=== PATIENT | male | born 1955 | race Caucasian/White ===

== ENCOUNTER 2016-07-17 09:26 | Day surgery (SDC) | payer BC ==
[~2016-07-17 09:26] MED LIST: FENTANYL 250 MCG/5 ML AMP IV PRN; LACTATED RINGERS 1,000 ML IV SCH; LIDOCAINE Viscous 2% 15 ML UDCUP PO PRN; MIDAZOLAM HCL 5 MG/5 ML VIAL IV PRN
[2016-07-17] MEDS ORDERED: LACTATED RINGERS 1,000 ML ONE (09:42)
[2016-07-17] MEDS ORDERED: IV START KIT ONE (09:42)
[2016-07-17] MEDS ORDERED: MIDAZOLAM HCL 5 MG/5 ML VIAL ONE (10:46)
[2016-07-17] MEDS ORDERED: FENTANYL 5 ML ONE (10:46)
[2016-07-17] MEDS ORDERED: LIDOCAINE Viscous 2% 15 ML UDCUP ONE (10:46)
[2016-07-17 15:36] LABS: HELICOBACTER PYLORII DETECTION NEGATIVE (NEGATIVE)
--- NOTE | 2016-07-20 08:08 | SURGPATH ---
[facility] [address] [place] [id number] Patient Name: TATY QUINONES MR#: [id number] : 1955 Gender: M Specimen #: [id number] Collected: 07/17/2016 Received: 07/18/2016 Reported: 07/20/2016 Submitting Phys: KRISTIAN ABEL Copy To Phys: [facility] PARAMJIT CAMARA Clinical History / Pre-Operative Diagnosis: Epigastric pain with nausea; melena; rule out giardia, celiac sprue and gastritis Specimen Source / Surgical Procedure Performed: #1-duodenal biopsy; #2-antral biopsy Interpretation: 1. DUODENUM, BIOPSY: - NO PATHOLOGIC DIAGNOSIS 2. GASTRIC ANTRUM, BIOPSY: - CHRONIC GASTRITIS Electronically Signed Out Jose Benites M.D. Gross Description: #1 The specimen is received in a formalin filled container labeled with the patient's name and "duodenal biopsy". Two rao biopsies are 0.3 and 0.4 cm. Totally embedded in cassette #1. #2 The specimen is received in a formalin filled container labeled with the patient's name and "antral biopsy". Two rao biopsies are 0.2 and 0.4 cm. Totally embedded in cassette #2. Dixon Morgan Microscopic Description: 1. Levels reveal small intestinal mucosa with a normal villous architecture. Ulceration, acute inflammation, granulomas, intraepithelial lymphocytosis, Giardia organisms, dysplasia and malignancy are not seen. 2. Levels reveal fragments of gastric mucosa with a normal glandular architecture. Focally there is a mild increase in chronic inflammatory cells within the superficial mucosa. Ulceration, dysplasia and malignant features are not seen. A Helicobacter immunostain is performed revealing absence of organisms. (Analyte-specific reagents (ASR) are used in many laboratory tests necessary for standard medical care and generally do not require FDA approval. This test was developed and its performance characteristics determined by [facility]. It has not been cleared or approved by the U.S. Food and Drug Administration. [facility] is certified under the Clinical Laboratory Improvement Amendments of 1988 as qualified to perform high complexity clinical laboratory testing. All controls stain as expected.) 1: 16408 2: 91335, 36331 K29.30
== END 2016-07-17 12:08 | disposition home or self-care (01) ==
LOC: SDC 09:26
PROVIDERS: ATTEND Internal Medicine Gastroenterology
PROC: 0DB98ZX Excision of Duodenum, Via Natural or Artificial Opening Endoscopic, Diagnostic (ICD-10-PCS; principal; 2016-07-17)
PROC: 0DB68ZX Excision of Stomach, Via Natural or Artificial Opening Endoscopic, Diagnostic (ICD-10-PCS; 2016-07-17)
DX: K29.50 Unspecified chronic gastritis without bleeding (principal); K29.80 Duodenitis without bleeding